=== PATIENT | male | born 1975 | race Caucasian/White ===

== ENCOUNTER 2016-04-19 17:33 | Emergency (ER) | payer BC ==
[~2016-04-19 17:33] MED LIST: ACETAMINOPHEN PO; ALB/IPRATROPIUM/1 EA INH; ALBUTEROL0.83 MG/ML NEB; ALBUTEROL17 GM; ALBUTEROL17 GM IH; BUPROPION HCL150 M1 PO; BUPROPION HCL150 M3 PO; CATAPRES0.1 MG PO; CLARITIN10 M3 PO; COGENTIN0.5 M1 PO; COMBIVENT U/D3 M2 INH; FAMOTIDINE20 M1 PO; GUAIFENESIN DM118 ML PO; HUMIBID-LA600 MG PO; LEVAQUIN PO; LEVOFLOXACIN500 MG PO; MONTELUKAST SOD10 MG PO; MUCINEX DM TABL1 BOX; NEURONTIN PO; NEURONTIN100 MG; NEURONTIN300 MG PO; NORVASC PO; NORVASC10 MG PO; PREDNISOLONE5 MG PO; PREDNISONE PO; PREDNISONE10 MG PO; PREDNISONE10 MG/DOSE PO; PRO-AIR INHALER; PROAIR HFA8.5 GM IH; REMERON15 MG PO; ROBITUSSIN100 MG/51 PO; SUBOXONE 8 MG-1 EAC1 SL; SYMBICORT INH; SYMBICORT80; TRAZODONE HCL100 MG PO; ZYRTEC; ZYRTEC PO
== END 2016-04-19 17:49 | disposition home or self-care (01) ==
LOC: CED 17:33
DX: T40.1X1A Poisoning by heroin, accidental (unintentional), initial encounter (principal); F17.200 Nicotine dependence, unspecified, uncomplicated; Z91.010 Allergy to peanuts
CPT/HCPCS: 99282

== ENCOUNTER → 2016-07-20 | Outpatient (CLI) | payer BC ==
--- NOTE | ~2016-07-20 | MR17 ---
[facility] A Service of [facility] & [facility] RADIOLOGY TEXT RESULTS PATIENT: BENTON MARTINEZ LOCATION: [facility] : 71 UNIT #: [id number] AGE: [address]: AYESHA PEARCE MD SEX: M ORDER DR: [id number] [place] [id number] O MR#: [id number] Acc #: [id number] NAME: BENTON MARTINEZ : 1975 SEX: M STUDY DATE/TIME: 07/20/2016 12:12 UNIT: [facility] ROOM: STUDY DESCRIPTION: MR Brain WWo Contrast Attending Physician: Ayesha Pearce M.D. Referring Physician: Ayesha Pearce M.D. Ordering Physician: Ayesha Pearce M.D. Primary Care Physician: Jaxson Betts M.D. MRI CENTER REPORT This report is preliminary unless electronic signature is present. EXAM MRI of the brain with and without HISTORY Abnormal brain scan. Heroin addict. Patient is confused and unable to provide history. Memory loss for 5 months. History of blackouts and substance abuse. No history of cancer. COMMENT MRI of the brain was performed prior to and following intravenous administration of 18 mL of MultiHance. COMPARISON STUDIES Comparison study is from 03/23/2016. FINDINGS There is no evidence for a recent ischemic insult on the diffusion series. The midline structures are unremarkable. There is a punctate focus of susceptibility seen in the right parietal cortex. This was present previously but on the prior study there was some surrounding likely vasogenic edema and this has since resolved. There is now subtle malacic change. Additionally on the prior study there was signal abnormality in the bilateral cerebellar hemispheres including cortex and underlying white matter. On current study only a small amount of signal abnormality remains and there is now a small amount of new blood product or mineral deposition in this location. There is no mass effect. On the prior study there was a focus of signal abnormality in the left occipital pole medially. On the current study only minimal signal abnormality remain now with subtle volume loss. There is no intracranial mass effect. There is no recent ischemic insult suspected. There is no pathologic intracranial enhancement currently. I suspect that each of these lesions described above was a manifestation of a subacute insult on the study of 03/23/2016 [facility] A Service of [facility] & [facility] RADIOLOGY TEXT RESULTS PATIENT: BENTON MARTINEZ LOCATION: [facility] : 71 UNIT #: [id number] AGE: [address]: AYESHA PEARCE MD SEX: M ORDER DR: with now evolution to chronic findings. The subacute insults could have been due to a global hypoxic ischemic insult (accounting for the cerebellar insult) or could have been due to thromboembolic disease (accounting for the right parietal and left occipital insults). Given heroin abuse/IV drug abuse history, a combination of these etiologies could be present. The patient also has white matter signal abnormality most apparent in the supratentorial white matter posteriorly periatrial region and on comparison to March this has progressed. Again there is no mass effect or enhancement and major considerations in a patient with known HIV are HIV encephalopathy or possibly progressive multifocal leukoencephalopathy or other opportunistic infection. Please correlate further clinically. Following contrast administration there is no pathologic intracranial enhancement and there is no intracranial mass lesion suspected. The major intracranial flow voids are maintained. There is mild paranasal sinus disease but no sinus air-fluid level and the mastoid air cells are clear. There is no extraaxial fluid collection. There is atrophy overall for age group. IMPRESSION 1. This is a complex case. Please refer to the discussion above. There has been evolution of prior findings since the study of 03/23/2016. There are now some areas of chronic abnormality which could be the result of prior global hypoxic ischemic insult and/or thromboembolic insult in this patient with known IV heroin abuse history. See discussion above. 2. There is also worsening white matter signal abnormality without mass effect or enhancement. In a patient with known HIV some major considerations are manifestation of HIV encephalopathy or manifestation of opportunistic infection such as progressive multifocal leukoencephalopathy. 3. Atrophy is greater than expected for age group. There is no recent ischemic insult or pathologic intracranial enhancement or intracranial mass effect at this time. STAT * RESULT Dictated by... Leatha Smith M.D. THIS IS AN ELECTRONICALLY VERIFIED REPORT Leatha Smith M.D. at 07/21/2016 7:04 PM SHANA/mona [facility]. [facility] A Service of [facility] & [facility] RADIOLOGY TEXT RESULTS PATIENT: BENTON MARTINEZ LOCATION: [facility] #: [id number] : [birth year] UNIT #: [id number] AGE: [address]: AYESHA PEARCE MD SEX: M ORDER DR: TD: 07/21/2016 16:14 JOB #: [id number] MRI CENTER REPORT Page 1 of 1
== END | disposition home or self-care (01) ==
LOC: SMRI 11:09
DX: R41.3 Other amnesia (principal); G31.9 Degenerative disease of nervous system, unspecified; F11.23 Opioid dependence with withdrawal; R94.02 Abnormal brain scan
CPT/HCPCS: 70553; A9581